=== PATIENT | female | born 1950 | race Hispanic/Latino ===

== ENCOUNTER 2017-02-16 11:05 | Outpatient (CLI) | payer MEDICARE, OTHER ==
--- NOTE | 2017-02-16 12:52 | CT ---
NONCONTRAST CT OF THE BRAIN: INDICATION: History of a head injury. COMPARISON: Prior exam dated 03/09/16. FINDINGS: No acute infarct, hemorrhage, or hydrocephalus is present. The mastoid air cells are clear. There are mucous retention cysts involving the inferior aspect of both maxillary sinuses. The skull is in tact. IMPRESSION: No acute intracranial abnormality. POS: LOLA
== END 2017-02-16 11:06 | disposition home or self-care (01) ==
LOC: NAV CT 11:05
PROVIDERS: ATTEND Family Medicine
DX: S09.90XA Unspecified injury of head, initial encounter (principal)
CPT/HCPCS: 70450